=== PATIENT | female | born 1975 | race Caucasian/White ===

== ENCOUNTER 2016-06-28 09:21 | Emergency (ER) | payer OTHER ==
[~2016-06-28] VITALS: Ht 162.6 cm; Wt 92.5 kg
[~2016-06-28 09:21] MED LIST: MTR600X PO; OXYC5TAB PO
[2016-06-28 09:24] VITALS: TEMP 36.7; Ht 162.6 cm; Wt 92.5 kg
[2016-06-28] MEDS ORDERED: ZOLP10TA6 PO (09:35)
[2016-06-28] MEDS ORDERED: ESTR1TAB2 PO (09:35)
[2016-06-28 10:29] LABS: BASO % 1.7 %; BASO ABS # 0.11 K/uL (0-0.2); COMPLETE YES; EOS % 1.5 %; HEMATOCRIT 41.6 % (37-47); LYMPH % 28.9 %; LYMPH ABS # 1.89 K/uL (1.2-3.4); MEAN CELL VOLUME 83.9 fL (80-100); MEAN CORPUSCULAR HGB CONC 34.6 g/dl (32-36); MEAN PLATELET VOLUME 9.8 fL (7.4-10.4); MONO % 8.3 %; NEUT % 59.6 %; PLATELET COUNT 309 K/uL (130-400); RED BLOOD COUNT 4.96 M/uL (4.2-5.4); WHITE BLOOD COUNT 6.53 K/uL (4.8-10.8)
[2016-06-28] MEDS ORDERED: DiphenhydrAMINE HCL 50 MG/ML VIAL IV STA (10:29)
[2016-06-28] MEDS ORDERED: KETOROLAC TROMETHAMINE 30 MG/ML VIAL IV STA (10:29)
[2016-06-28] MEDS ORDERED: PROCHLORPERAZINE 5 MG/ML 2 ML VIAL IV STA (10:29)
[2016-06-28] MEDS ORDERED: DEXAMETHASONE SOD INJ 10 MG/ML VIAL IV ONE (10:30)
[2016-06-28 10:34] LABS: BUN/CREATININE RATIO 17.7 (10-20); CALCIUM 8.9 mg/dl (8.5-10.1); CREATININE 0.73 mg/dl (0.60-1.20); POTASSIUM 3.9 mmol/L (3.5-5.1)
[2016-06-28 10:37] LABS: ALB/GLOB RATIO 1.1 (0.9-2)
--- NOTE | 2016-06-28 11:25 | DIAGNOSTIC IMAGING REPORT ---
HEAD CT NONCONTRAST CT DOSE: 537.48 mGy.cm HISTORY: Headache. Evaluate for hemorrhage or pathology TECHNIQUE: Multiaxial CT images of the head were performed without the use of intravenous contrast. Automated exposure control was utilized for this study. Comparison: None. Findings: The paranasal sinuses and mastoid air cells are clear. The calvarium and skull base are intact. The ventricles and sulci are within normal limits. There is no mass, hematoma, midline shift, or acute infarct. Metallic artifact through the posterior fossa. Impression: No acute intracranial abnormality. Electronically signed by: Ilya Torres M.D. 06/28/2016 11:24 AM Dictated Date/Time: 06/28/2016 11:17 AM
--- NOTE | 2016-06-28 12:53 | EMERGENCY ROOM VISIT NOTE ---
History Report prepared by Chadibisabela: Henry Rebollar Under the Supervision of: Dr. Mathew Pearl D.O. First contact with patient: 10:24 Chief Complaint: HEAD PAIN Stated Complaint: SEVERE HEAD PAIN History of Present Illness The patient is a 40 year old female who presents to the Emergency Room with complaints of a waxing & waning severe headache since yesterday. The pain is bilateral and covers the top of her head. She has been taking Ibuprofen for pain. The patient has a history of migraines, but states that her current headache is worse. She had a similar headache less than one month ago. The patient denies any recent falls or trauma. She denies any recent fevers, cough, or other cold symptoms. Source of History: patient Onset: yesterday Position: head Symptom Intensity: severe Timing: waxes/wanes Associated Symptoms: No cough, No fevers Review of Systems See HPI for pertinent positives & negatives. A total of 10 systems reviewed and were otherwise negative. Past Medical & Surgical Medical Problems: (1) Asthma (2) Bronchitis (3) delivery delivered (4) Hypertension during (5) Pelvic pain (6) Pneumonia (7) Ruptured ovarian cyst Surgical Problems: (1) Hx of cholecystectomy Family History Cancer Diabetes mellitus FH: heart disease FHx: lung disease Hypertension Kidney disease Kidney stones Social History Smoking Status: Former Smoker Alcohol Use: none Marital Status: in relationship Housing Status: lives with family Occupation Status: employed Current/Historical Medications Scheduled Estradiol (Estrace), 1 MG PO DAILY Zolpidem Tartrate (Zolpidem Tartrate), 10 MG PO HS Allergies Coded Allergies: Latex (Unverified Allergy, Unknown, SHORTNESS OF BREATH, 06/03/15) Penicillins (Verified Allergy, Unknown, 06/03/15) Pineapple (Unverified Allergy, Unknown, SHORTNESS OF BREATH, 06/03/15) Quinolones (Unverified Allergy, Unknown, SHORTNESS OF BREATH, 06/03/15) Physical Exam Vital Signs Date Time Temp Pulse Resp B/P Pulse Ox O2 Delivery O2 Flow Rate FiO2 06/28/16 13:08 61 16 107/70 96 06/28/16 11:14 67 16 119/73 97 06/28/16 09:24 36.7 88 18 147/87 96 Room Air Physical Exam VITAL SIGNS: were reviewed as above. GENERAL:Non-toxic in appearance. SKIN: Warm dry and pink. HEAD: Normocephalic and atraumatic. OROPHARYNX: Is clear and moist NECK: Supple without lymphadenopathy or meningismus. LUNGS: clear. HEART: Regular rate and rhythm. ABDOMEN: Soft and nontender. EXTREMITIES: Warm and well perfused. NEUROLOGICALLY: Awake alert and oriented without focal deficit. Cranial nerves 2 -12 are intact. There is no pronator drift. Cerebellar testing is within normal limits. There is no nystagmus. There is no facial droop. Speech is clear. Vision is grossly normal. MUSCULOSKELETAL: Good muscle tone. No evidence of trauma. Medical Decision & Procedures ER Provider Diagnostic Interpretation: CT results as stated below per my review and radiologist interpretation: HEAD CT NONCONTRAST CT DOSE: 537.48 mGy.cm HISTORY: Headache. Evaluate for hemorrhage or pathology TECHNIQUE: Multiaxial CT images of the head were performed without the use of intravenous contrast. Automated exposure control was utilized for this study. Comparison: None. Findings: The paranasal sinuses and mastoid air cells are clear. The calvarium and skull base are intact. The ventricles and sulci are within normal limits. There is no mass, hematoma, midline shift, or acute infarct. Metallic artifact through the posterior fossa. Impression: No acute intracranial abnormality. Electronically signed by: Ilya Torres M.D. 06/28/2016 11:24 AM Dictated Date/Time: 06/28/2016 11:17 AM Laboratory Results 06/28/16 09:50 Red Blood Count 4.96, Mean Corpuscular Volume 83.9, Mean Corpuscular Hemoglobin 29.0, Mean Corpuscular Hemoglobin Concent 34.6, Mean Platelet Volume 9.8, Neutrophils (%) (Auto) 59.6, Lymphocytes (%) (Auto) 28.9, Monocytes (%) (Auto) 8.3, Eosinophils (%) (Auto) 1.5, Basophils (%) (Auto) 1.7, Neutrophils # (Auto) 3.89, Lymphocytes # (Auto) 1.89, Monocytes # (Auto) 0.54, Eosinophils # (Auto) 0.10, Basophils # (Auto) 0.11 06/28/16 09:50 Test 06/28/16 09:50 White Blood Count 6.53 K/uL (4.8-10.8) Red Blood Count 4.96 M/uL (4.2-5.4) Hemoglobin 14.4 g/dL (12.0-16.0) Hematocrit 41.6 % (37-47) Mean Corpuscular Volume 83.9 fL (80-100) Mean Corpuscular Hemoglobin 29.0 pg (25-34) Mean Corpuscular Hemoglobin Concent 34.6 g/dl (32-36) Platelet Count 309 K/uL (130-400) Mean Platelet Volume 9.8 fL (7.4-10.4) Neutrophils (%) (Auto) 59.6 % Lymphocytes (%) (Auto) 28.9 % Monocytes (%) (Auto) 8.3 % Eosinophils (%) (Auto) 1.5 % Basophils (%) (Auto) 1.7 % Neutrophils # (Auto) 3.89 K/uL (1.4-6.5) Lymphocytes # (Auto) 1.89 K/uL (1.2-3.4) Monocytes # (Auto) 0.54 K/uL (0.11-0.59) Eosinophils # (Auto) 0.10 K/uL (0-0.5) Basophils # (Auto) 0.11 K/uL (0-0.2) RDW Standard Deviation 37.8 fL (36.4-46.3) RDW Coefficient of Variation 12.5 % (11.5-14.5) Immature Granulocyte % (Auto) 0.0 % Immature Granulocyte # (Auto) 0.00 K/uL (0.00-0.02) Erythrocyte Sedimentation Rate 8 mm/hr (0-21) Anion Gap 9.0 mmol/L (3-11) Est Creatinine Clear Calc Drug Dose 115.2 ml/min Estimated GFR () 121.1 Estimated GFR (Non- 104.5 BUN/Creatinine Ratio 17.7 (10-20) Calcium Level 8.9 mg/dl (8.5-10.1) Total Bilirubin 0.4 mg/dl (0.2-1) Aspartate Amino Transf (AST/SGOT) 15 U/L (15-37) Alanine Aminotransferase (ALT/SGPT) 20 U/L (12-78) Alkaline Phosphatase 76 U/L (45-117) Total Protein 7.9 gm/dl (6.4-8.2) Albumin 4.1 gm/dl (3.4-5.0) Globulin 3.8 gm/dl (2.5-4.0) Albumin/Globulin Ratio 1.1 (0.9-2) Laboratory results as stated above per my review. Medications Administered Medications (Trade) Dose Ordered Sig/Satish Route Start Time Stop Time Status Last Admin Dose Admin Ketorolac Tromethamine (Toradol Inj) 30 mg NOW STAT IV 06/28/16 10:29 06/28/16 10:32 DC 06/28/16 10:47 30 MG Prochlorperazine Edisylate (Compazine Inj) 10 mg NOW STAT IV 06/28/16 10:29 06/28/16 10:32 DC 06/28/16 10:50 10 MG Dexamethasone Sodium Phosphate (Decadron Inj) 10 mg NOW ONCE IV 06/28/16 10:30 06/28/16 10:32 DC 06/28/16 10:48 10 MG Diphenhydramine HCl (Benadryl Inj) 50 mg NOW STAT IV 06/28/16 10:29 06/28/16 10:32 DC 06/28/16 10:49 50 MG ED Course 1022: Previous medical records were reviewed. The patient was evaluated in room A11a. A complete history and physical examination was performed. 1029: Benadryl 50 mg IV, Compazine 10 mg IV, Toradol 30 mg IV. 1030: Decadron 10 mg IV. 1250: Reassessed the patient. Discussed the treatment plan with her. She verbalized understanding and agreement. The patient is ready for discharge. Medical Decision Differential includes: Acute intracranial bleed, trauma, meningitis, encephalitis, increased intracranial pressure, mass or mass effect, facial or dental infection, temporal arteritis, CVA, TIA, acute hypertensive emergency, sinusitis, carbon monoxide exposure. This is a 40-year-old female who presents to the ED with a chief complaint of a headache. The patient reports a headache on the top of her head. Further details listed above. She denies any trauma or recent illness. She does report a history of migraines but this is different. Vital signs are normal. Neurologic and physical exam were normal. Sedimentation rate is 8. CBC is normal. Complete medical panel is normal. CT scan of brain was negative for acute disease. The patient was treated with IV fluids, IV Benadryl, IV Decadron , IV Toradol and IV Compazine. The patient was told the results. She is felt to be stable for discharge. [place] Drug Monitoring Program Search Results: patient reviewed within database, no issues identified Impression Primary Impression: Headache Scribe Attestation The scribe's documentation has been prepared under my direction and personally reviewed by me in its entirety. I confirm that the note above accurately reflects all work, treatment, procedures, and medical decision making performed by me. Departure Information Dispostion Home / Self-Care Referrals Lam You M.D. (PCP) Forms HOME CARE DOCUMENTATION FORM, IMPORTANT VISIT INFORMATION, WORK / SCHOOL INSTRUCTIONS Patient Instructions ED Headache Migraine, My [facility] Additional Instructions Follow-up with your doctor for further care and evaluation in 1-2 days. Return to the emergency department for worsening or new symptoms or any concerns. You have been examined and treated today on an emergency basis only. This is not a substitute for, or an effort to provide, complete comprehensive medical care. It is impossible to recognize and treat all injuries or illnesses in a single emergency department visit. It is therefore important that you follow up closely with your doctor. Call as soon as possible for an appointment.
[2016-06-28 13:08] VITALS: BP 107/70; PULSE 61; O2SAT 96
== END 2016-06-28 13:25 | disposition home or self-care (01) ==
LOC: C.EDB 09:22 → C.EDA 13:25
DX: R51 Headache (principal); J45.909 Unspecified asthma, uncomplicated; I10 Essential (primary) hypertension; Z87.891 Personal history of nicotine dependence; Z83.3 Family history of diabetes mellitus; Z82.49 Family history of ischemic heart disease and other diseases of the circulatory system; Z84.1 Family history of disorders of kidney and ureter